=== PATIENT | female | born 1945 | race Two or more races ===

== ENCOUNTER 2017-11-11 04:42 | Day surgery (SDC) | payer OTHER ==
[~2017-11-11 04:42] MED LIST: BONIVA150 MG PO; METROPOLOL PO; PROZAC10 MG PO; SINGULAIR10 MG PO
[2017-11-11] MEDS ORDERED: DUI500 PO (08:06)
[2017-11-11] MEDS ORDERED: TRAM1TAB98 PO (08:06)
== END 2017-11-11 14:00 | disposition home or self-care (01) ==
LOC: CIR.AMB 04:42
DX: M23.321 Other meniscus derangements, posterior horn of medial meniscus, right knee (principal); M17.11 Unilateral primary osteoarthritis, right knee

== ENCOUNTER 2020-11-28 11:42 | Outpatient (CLI) | payer OTHER ==
[~2020-11-28 11:42] MED LIST changes: +DUI500 PO; +TRAM1TAB98 PO
== END 2020-11-28 15:21 | disposition home or self-care (01) ==
LOC: SONOGRAMA 11:42
PROVIDERS: ATTEND Pathology Anatomic Pathology & Clinical Pathology
DX: D34 Benign neoplasm of thyroid gland (principal); E04.2 Nontoxic multinodular goiter; E04.8 Other specified nontoxic goiter